=== PATIENT | female | born 1945 | race Caucasian/White ===

== ENCOUNTER 2017-01-03 12:13 | Emergency (ER) | payer BC, OTHER ==
[2017-01-03] MEDS ORDERED: LEVETIRACETAM INJ 1,000 MG in SODIUM CHLORIDE 0.9% 100 ML IV ONE (13:50)
[2017-01-03] MEDS ORDERED: SODIUM CHLORIDE 0.9% 100 ML IV ONE (14:20)
[2017-01-03] MEDS ORDERED: CEFTRIAXONE 1 GM VIAL ONE (14:20)
== END 2017-01-03 19:58 | disposition other institution (70) ==
LOC: ER 12:13
DX: G40.409 Other generalized epilepsy and epileptic syndromes, not intractable, without status epilepticus (principal); N39.0 Urinary tract infection, site not specified; Z98.890 Other specified postprocedural states; Z79.899 Other long term (current) drug therapy; Z79.82 Long term (current) use of aspirin
CPT/HCPCS: 36415; 70450; 71010; 80053; 80061; 81001; 82553; 82947; 83690; 84484; 84703; 85025; 85384; 85610; 85730; 87077; 87088; 87186; 93005; 96365; 96366; 96375; 99285; J0696; J1953; J7050